=== PATIENT | female | born 1995 | race Caucasian/White ===

== ENCOUNTER 2019-06-24 21:03 | Emergency (ER) | payer OTHER ==
[~2019-06-24] VITALS: Ht 157.5 cm; Wt 52.2 kg
--- NOTE | 2019-06-24 21:21 | NUR ---
ED Nurse Note: PT AMBULATED TO ED C/O PALPITATIONS X 30 MINUTES WITH CHEST PAIN. PT STATES SHE HAD A HYBRID THC 2 HRS AGO
--- NOTE | 2019-06-24 21:22 | NUR ---
ED Nurse Note: PT DENIES NAUSEA VOMITING. PER PT "JAMES HAD PANIC ATTACKS BEFORE AND IT FEELS SIMILAR JUST A LITTLE BIT MORE INTENSE THIS TIME"
[2019-06-24 21:23] VITALS: BP 121/83
[2019-06-24] MEDS ORDERED: LORazepam Inj 2mg/ml 1ml IV ONE (21:30)
--- NOTE | 2019-06-24 21:30 | Emergency Room Report ---
History of Present Illness General Chief Complaint: Chest Pain Source: Patient Present Illness HPI 23-year-old female history of anxiety, recent marijuana use 2 hours prior to arrival presents with palpitations prior to arrival, patient was seated down, felt like her heart stop for a moment and then all of a sudden she had her heart racing, no aggravating relieving factors severity was moderate, constant no shortness of breath, no pleuritic chest pain no chest tightness, no nausea vomiting no dyspnea on exertion, no history of sudden in the family, patient presents for evaluation. Allergies: Coded Allergies: No Known Allergies (Unverified , 06/24/19) Patient History Past Medical History: see triage record Social History: Reports: drug use - Marijuana Last Menstrual Period: 05/25/19 Now: No : 0 Para: 0 Reviewed Nursing Documentation: PMH: Agreed; PSxH: Agreed Nursing Documentation-PMH History Of Psychiatric Problem: Yes - anxiety Review of Systems All Other Systems: negative except mentioned in HPI Physical Exam Vital Signs Date Time Temp Pulse Resp B/P (MAP) Pulse Ox O2 Delivery O2 Flow Rate FiO2 06/24/19 21:10 98.4 112 19 121/83 (96) 100 Room Air Sp02 EP Interpretation: reviewed, normal General Appearance: well appearing, no apparent distress, alert Head: normocephalic, atraumatic Eyes: bilateral eye PERRL, bilateral eye EOMI ENT: uvula midline, moist mucus membranes Neck: supple, thyroid normal, supple/symm/no masses Respiratory: lungs clear, no respiratory distress, no retraction, no accessory muscle use Cardiovascular #1: normal peripheral pulses, no edema, no gallop, no murmur, tachycardia Gastrointestinal: non tender, soft, no guarding, no rebound Musculoskeletal: normal inspection Neurologic: alert, oriented x3 Psychiatric: mood/affect normal Skin: no rash, warm/dry Medical Decision Making Diagnostic Impression: Primary Impression: Palpitations ER Course Patient presents with palpitations, she smokes some marijuana prior, she felt anxious, she states had a similar episode in the past, she is currently not taking control low suspicion for ACS low suspicion for PE low suspicion for pneumonia Patient given Ativan, fluids with resolution of tachycardia Disposition home with return precautions Laboratory Tests Test 06/24/19 21:21 Urine HCG, Qualitative Negative (NEGATIVE) Urine Opiates Screen Negative (NEGATIVE) Urine Barbiturates Screen Negative (NEGATIVE) Phencyclidine (PCP) Screen Negative (NEGATIVE) Urine Amphetamines Screen Negative (NEGATIVE) Urine Benzodiazepines Screen Negative (NEGATIVE) Urine Cocaine Screen Negative (NEGATIVE) Urine Marijuana (THC) Screen Positive (NEGATIVE) H EKG Diagnostic Results EKG Time: 21:29 EP Interpretation: NSR, rate 99, QTc 405, no acute ST elevations, normal axis Chest X-Ray Diagnostic Results Chest X-Ray Diagnostic Results : Chest X-Ray Ordered: Yes # of Views/Limited/Complete: 1 View Indication: Other - Palpitations EP Interpretation: Yes Interpretation: no consolidation, no effusion, no pneumothorax, no acute cardiopulmonary disease Impression: No acute disease Electronically Signed by: Alok Daniels MD Last Vital Signs Date Time Temp Pulse Resp B/P (MAP) Pulse Ox O2 Delivery O2 Flow Rate FiO2 06/24/19 21:23 98.4 112 19 121/83 100 Room Air Disposition: HOME, SELF-CARE Condition: Stable Referrals: [facility] Patient Instructions: Palpitations, [id number] Additional Instructions: The patient was provided with discharge instructions, notified to follow-up with a primary care doctor and or specialist in the next 24-48 hours, and to return to the ED if they have worsening of their symptoms. Please note that this report is being documented using [employer] technology. This can lead to erroneous entry secondary to incorrect interpretation by the dictating instrument. Alok Daniles MD Jun 24, 2019 21:30
--- NOTE | 2019-06-24 21:55 | NUR ---
ED Nurse Note: XRAY AT BEDSIDE
[2019-06-24 22:36] VITALS: BP 123/80
--- NOTE | 2019-06-24 22:37 | NUR ---
ER DISCHARGE NOTE: Patient is cleared to be discharged per ERMD, pt is aox4, on room air, with stable vital signs. pt was given dc and prescription instructions, pt was able to verbalize understanding, pt id band and iv site removed without complications. pt is able to ambulate with steady gait. pt took all belongings.
--- NOTE | 2019-06-25 12:20 | Diagnostic Imaging Report ---
Indication: Chest pain Technique: One view of the chest Comparison: none Findings: Lungs and pleural spaces are clear. Heart size is normal. Impression: No acute process
--- NOTE | 2019-06-28 11:31 | Cardiology Report ---
APPROVED REPORT EKG Measurement Heart [id number] Sinus rhythm with marked sinus arrhythmia Possible Left atrial enlargement Borderline ECG
== END 2019-06-24 22:56 | disposition home or self-care (01) ==
LOC: EMR 21:30
DX: R00.2 Palpitations (principal); F41.9 Anxiety disorder, unspecified; R00.0 Tachycardia, unspecified
CPT/HCPCS: 71045; 80307; 81025; 93005; 96361; 96374; 99284